=== PATIENT | male | born 1975 | race Caucasian/White ===

== ENCOUNTER 2016-10-24 17:09 | Emergency (ER) | payer SELFPAY ==
--- NOTE | 2016-10-24 18:36 | ED CLINICAL REPORT ---
Clinical Report - Physicians/Mid Levels [facility] [address] [place] [address] 10/24/2016 17:15 Patient: EMMANUEL SINCLAIR Time Seen: 17:30; initial patient contact. Arrived- By private vehicle. Historian- patient. HISTORY OF PRESENT ILLNESS Chief Complaint: FOREIGN BODY SENSATION IN THROAT. This started yesterday and is still present. It was abrupt in onset and has been constant. There has been no pain. No sore throat. Similar symptoms previously: Several times. ( Normally passes. Has tried a carbonated beverage w/out success.). Recent medical care: Not recently seen/assessed. REVIEW OF SYSTEMS No cough, difficulty breathing, chest pain or nausea. He has had vomiting. All systems otherwise negative, except as recorded above. PAST HISTORY Negative. Problems: no known problems. Surgeries: No history of previous surgery. Additional Surgeries: no known surgeries. SOCIAL HISTORY Never smoker. Occasional alcohol use. No drug use. ADDITIONAL NOTES The nursing notes have been reviewed. PHYSICAL EXAM Vital Signs: 10/24/2016 17:23 BP: 135/88. HR: 84. RR: 16. O2 saturation: 98%. Temp: 97.9 F. Pain level now: 5/10. Have been reviewed as normal. Appearance: Alert. No acute distress. Head: Normal external inspection. ENT: Pharynx normal. Lips normal. Gums normal. No trismus present. Uvula midline. No muffled or hoarse voice or drooling. The mucous membranes are not dry. Neck: Normal inspection. Trachea midline. No adenopathy. Thyroid normal. Neck supple. CVS: Normal heart rate and rhythm. Heart sounds normal. Respiratory: No respiratory distress. Breath sounds normal. Abdomen: Soft and nontender. Skin: Normal skin color. No rash. Neuro: Oriented X 3. LABS, X-RAYS, AND EKG Chest X-ray: No acute disease. Normal lung markings present. Normal heart size. Soft tissues normal. No infiltrate. (No FB). Views: AP. Technique: good. The X-rays were independently viewed by me and interpreted contemporaneously by me. Prior films were not available for comparison. Laboratory Tests: CBC w Diff: (NYDIA: 10/24/2016 18:00) ( MsgRcvd 10/24/2016 18:15) Final results Test Result Flag Units (Reference) WHITE BLOOD COUNT 8.5 K/uL (4.5-11.5) RED BLOOD COUNT 5.07 M/uL (4.50-5.90) HEMOGLOBIN 16.7 gm/dL (13.5-17.5) HEMATOCRIT 47.4 % (41.0-53.0) MEAN CELL VOLUME 94 fL (80-100) MEAN CORPUSCULAR HGB 33 pg (26-34) MEAN CORPUSCULAR HGB CONC 35 g/dL (31-37) RED CELL DISTRIBUTION WIDTH 12.8 % (11.6-14.8) PLATELET COUNT 261 K/uL (150-400) NEUTROPHIL % 80.6 H % (50-75) LYMPH % 12.4 L % (25-40) MONO % 5.8 % (3-14) EOSINOPHIL % 0.9 % (0-4) BASOPHIL % 0.3 % (0-2) . PROGRESS AND PROCEDURES Course of Care: FB cleared w/ Glucagon 1 mg. Pt able to swallow water. Disposition: Discharged home in good and improved condition. Condition: good. CLINICAL IMPRESSION Impacted esophageal foreign body: food (Cleared with Glucagon). INSTRUCTIONS Prescription Medications: Pantoprazole 40 mg tablets: take 1 tablet orally every day. Dispense twenty-eight (28). One refill. Follow-up: Screening today revealed the patient's blood pressure to be in the hypertensive range. The patient should follow up with a primary care provider for blood pressure management. Follow-up with: Karel Saul MD, General Surgeon, , [facility], [address] [place] [address] Follow up in one week. Call for an appointment. (Electronically signed by Ayad Madden Dr. 10/25/2016 20:47)
--- NOTE | 2016-10-24 18:36 | ED ORDER SUMMARY ---
..... Patient: EMMANUEL SINCLAIR OrderSheet [facility] VisitID: [id number] [place] [address] 41y, M Registration Date/Time: 10/24/2016 ORDER SHEET Weight: 95.2 kg (stated) Allergies: Unable to Obtain GENERAL ORDERS: CBC w Diff Urgent (17:36 10/24/2016 Stephani Ibrahim) (Ack 17:38 AMcQuoid ER Tech1) (18:01 KKnebel R.N.) CMP Urgent (17:36 10/24/2016 Stephani Ibrahim) (Ack 17:38 AMcQuoid ER Tech1) (18:01 KKnebel R.N.) Chest 1V (FB in esophagus) Urgent (17:40 10/24/2016 Stephani Ibrahim) (Ack 17:42 AMcQuoid ER Tech1) (18:01 KKnebel R.N.) MEDICATION ORDERS: Glucagon IV 1 mg (NOW) (17:36 10/24/2016 Stephani Ibrahim) (18:01 KKnebel R.N.) IV FLUIDS: IV NS : initial bolus none -, then 1000 mL/hr for X1 (NOW) (17:36 10/24/2016 Stephani Ibrahim) (18:01 PARKnejeff R.N.) Zofran IV 4 mg (NOW) (18:04 10/24/2016 PARKnebel R.N. verbal order read back to Stephani Ibrahim) (18:05 KKnebel R.N.) ORDER SHEET NOTES: [Electronically signed by Genny Ashford (18:49 10/24/2016)] [Electronically signed by Ayad Madden Dr. (20:47 10/25/2016)] [Electronically locked/signed by Genny Ashford (18:49 10/24/2016)]
--- NOTE | 2016-10-24 18:36 | ED ORDER SUMMARY ---
..... Patient: EMMANUEL SINCLAIR OrderSheet [facility] VisitID: [id number] [place] [address] 41y, M Registration Date/Time: 10/24/2016 ORDER SHEET Weight: 95.2 kg (stated) Allergies: Unable to Obtain GENERAL ORDERS: CBC w Diff Urgent (17:36 10/24/2016 Stephani Ibrahim) (Ack 17:38 AMcQuoid ER Tech1) (18:01 KKnebel R.N.) CMP Urgent (17:36 10/24/2016 Stephani Ibrahim) (Ack 17:38 AMcQuoid ER Tech1) (18:01 KKnebel R.N.) Chest 1V (FB in esophagus) Urgent (17:40 10/24/2016 Stephani Ibrahim) (Ack 17:42 AMcQuoid ER Tech1) (18:01 KKnebel R.N.) MEDICATION ORDERS: Glucagon IV 1 mg (NOW) (17:36 10/24/2016 Stephani Ibrahim) (18:01 KKnebel R.N.) IV FLUIDS: IV NS : initial bolus none -, then 1000 mL/hr for X1 (NOW) (17:36 10/24/2016 Stephani Ibrahim) (18:01 PARKnejeff R.N.) Zofran IV 4 mg (NOW) (18:04 10/24/2016 PARKnebel R.N. verbal order read back to Stephani Ibrahim) (18:05 KKnebel R.N.) ORDER SHEET NOTES: [Electronically signed by Genny Ashford (18:49 10/24/2016)] [Electronically signed by Ayad Madden Dr. (20:47 10/25/2016)] [Electronically locked/signed by Genny Ashofrd (18:49 10/24/2016)]
--- NOTE | 2016-10-24 18:36 | ED NURSING NOTES ---
Clinical Report - Nurses [facility] [address] [place] [address] 10/24/2016 17:15 Patient: EMMANUEL SINCLAIR TRIAGE Triage time 17:Oct 24 2016. Acuity: LEVEL 3. Chief Complaint: FOOD BOLUS. Alert. No acute distress. LUIZA COMA SCORE: Paradise Coma Scale: 15- eyes open spontaneously (4); best verbal response- oriented x 4 (5); best motor response- obeys commands (6). --17:28 Sandy Pelayo R.N. 17:23 10/24/16. BP: 135/88. HR: 84. RR: 16. O2 saturation: 98%. Temp: 97.9 F. Pain level now: 510. --17:28 Sandy Pelayo R.N. Weight: 95.2 kg stated. Height/Length: 76 inches Per Patient. BMI: 25.6. --17:27 Sandy Pelayo R.N. Medications Unable to Obtain (patient discharged). --18:49 Genny Ashford. Allergies Unable to Obtain. (patient discharged.) --18:49 Genny Ashford. History Arrived by private vehicle. Historian: patient. Accompanied by family. ( unable to keep saliva, liquid or food down). PAST MEDICAL HX: Immunizations: up-to-date. SOCIAL HX: Never smoker. Occasional alcohol use. No drug use. No infectious disease exposure. SELF HARM ASSESSMENT: A self harm assessment was performed. The patient answered "no" to the question "Do you have thoughts of harming or killing yourself?" and "Have you recently had thoughts about harming or killing others?". FALL RISK ASSESSMENT: Fall risk assessment completed. No fall risk identified. NUTRITIONAL RISK ASSESSMENT: The nutritional risk assessment revealed no deficiencies. FUNCTIONAL ASSESSMENT: Functional assessment: no impairments noted. LEARNING NEEDS ASSESSMENT: The learning needs assessment revealed no barriers. ABUSE ASSESSMENT: Abuse assessment: The patient was asked "Do you feel safe in your home?". SKIN INTEGRITY ASSESSMENT: Skin integrity risk assessment completed. No skin integrity risk identified. --17: Sandy Pelayo R.N. PROBLEMS: no known problems. ADDITIONAL SURGERIES: no known surgeries. Interventions ID band on patient. To room. --17: Sandy Pelayo R.N. PHYSICAL ASSESSMENT GENERAL / NEURO / PSYCH: Alert. Oriented X 4. Appears in no acute distress. HEENT: Pupils equal, round and reactive to light. RESPIRATORY: Respirations not labored. CVS: Capillary refill less than 2 seconds. Pulses within normal limits. GI / : Abdomen soft and nontender. SKIN: Skin is warm and dry. --17: Sandy Pelayo R.N. NURSING PROGRESS NOTES Pulse oximeter and NIBP monitor placed on patient; monitor alarms on. Patient gowned. Head of bed elevated. Patient identifiers checked. Call light placed in reach. Bed placed in lowest position. Brakes of bed on. --17: Sandy Pelayo R.N. 17:56 10/24/2016 Glucagon IVP 1 mg given over 2 minute(s) via site #1. Allergies verified and confirmed 5 rights. IV patency established. IV site checked: no pain, redness, or swelling. IV flushed thoroughly pre- and post-medication administration. IVP given by RN. --18: Sandy Pelayo R.N. 17:56 10/24/2016 Started bag #1 1000 mL IV Fluids IV NS (Saline); bolus of 1000 mL over 1 hour(s) via site #1 via IV pump. Allergies verified and confirmed 5 rights. IV patency established. IV site checked: no pain, redness, or swelling. IV flushed thoroughly pre- and post-medication administration. --18: Sandy Pelayo R.N. 18:10/24/2016 Site #1 started via IV in the left antecubital space with an 20g angiocath, with aseptic technique and good blood return; one attempt. Blood drawn: rainbow set. Labeled in the presence of the patient and sent to the lab. Saline lock flushed with 10 mL saline. --18: Sandy Pelayo R.N. 18:05 10/24/2016 Zofran (Ondansetron HCl) IVP 4 mg given over 2 minute(s) via site #1. Allergies verified and confirmed 5 rights. IV patency established. IV site checked: no pain, redness, or swelling. IV flushed thoroughly pre- and post-medication administration. IVP given by RN. --18:05 Sandy Pelayo R.N. ( pt states that he felt bolus of food go down.). --18:27 Sandy Pelayo R.N. 18:26 10/24/16. BP: 143/81. HR: 77. RR: 16. O2 saturation: 98%. Pain level now: 0/10. --18:27 Sandy Pelayo R.N. ( water given to patient). --18:27 Sandy Pelayo R.N. DISPOSITION / DISCHARGE 18:48 10/24/16. Departure time: 18:48 Oct 24 2016. Condition at departure: improved. The goals identified in the patient's plan of care were met. No learning barriers present. Discharge instructions provided and reviewed with the patient. Reviewed warnings (Patient verbalized awareness of warning s/sx listed in dc paperwork.). Reviewed medication(s). Prescription(s) given to the patient (pantoprazole). Treatments reviewed. Reviewed referral to a primary care physician for followup. Patient verbalized understanding. Written instructions provided in Lithuanian. The patient was discharged by the physician. He was discharged home and accompanied by family. He left the Emergency Department ambulatory and via private vehicle. Family member driving. FALL RISK ASSESSMENT: Fall risk assessment completed. No fall risk identified. --18:48 Genny Ashford 18:46 10/24/16. BP: 136/90. HR: 82. RR: 16. O2 saturation: 100% on room air. Temp: 97.5 F (oral). Pain level now: 0/10. --18:48 Genny Ashford. Locked/Released at 10/24/2016 18:49 by Genny Ashford,
--- NOTE | 2016-10-24 18:36 | ED CLINICAL REPORT ---
Clinical Report - Physicians/Mid Levels [facility] [address] [place] [address] 10/24/2016 17:15 Patient: EMMANUEL SINCLAIR Time Seen: 17:30; initial patient contact. Arrived- By private vehicle. Historian- patient. HISTORY OF PRESENT ILLNESS Chief Complaint: FOREIGN BODY SENSATION IN THROAT. This started yesterday and is still present. It was abrupt in onset and has been constant. There has been no pain. No sore throat. Similar symptoms previously: Several times. ( Normally passes. Has tried a carbonated beverage w/out success.). Recent medical care: Not recently seen/assessed. REVIEW OF SYSTEMS No cough, difficulty breathing, chest pain or nausea. He has had vomiting. All systems otherwise negative, except as recorded above. PAST HISTORY Negative. Problems: no known problems. Surgeries: No history of previous surgery. Additional Surgeries: no known surgeries. SOCIAL HISTORY Never smoker. Occasional alcohol use. No drug use. ADDITIONAL NOTES The nursing notes have been reviewed. PHYSICAL EXAM Vital Signs: 10/24/2016 17:23 BP: 135/88. HR: 84. RR: 16. O2 saturation: 98%. Temp: 97.9 F. Pain level now: 5/10. Have been reviewed as normal. Appearance: Alert. No acute distress. Head: Normal external inspection. ENT: Pharynx normal. Lips normal. Gums normal. No trismus present. Uvula midline. No muffled or hoarse voice or drooling. The mucous membranes are not dry. Neck: Normal inspection. Trachea midline. No adenopathy. Thyroid normal. Neck supple. CVS: Normal heart rate and rhythm. Heart sounds normal. Respiratory: No respiratory distress. Breath sounds normal. Abdomen: Soft and nontender. Skin: Normal skin color. No rash. Neuro: Oriented X 3. LABS, X-RAYS, AND EKG Chest X-ray: No acute disease. Normal lung markings present. Normal heart size. Soft tissues normal. No infiltrate. (No FB). Views: AP. Technique: good. The X-rays were independently viewed by me and interpreted contemporaneously by me. Prior films were not available for comparison. Laboratory Tests: CBC w Diff: (NYDIA: 10/24/2016 18:00) ( MsgRcvd 10/24/2016 18:15) Final results Test Result Flag Units (Reference) WHITE BLOOD COUNT 8.5 K/uL (4.5-11.5) RED BLOOD COUNT 5.07 M/uL (4.50-5.90) HEMOGLOBIN 16.7 gm/dL (13.5-17.5) HEMATOCRIT 47.4 % (41.0-53.0) MEAN CELL VOLUME 94 fL (80-100) MEAN CORPUSCULAR HGB 33 pg (26-34) MEAN CORPUSCULAR HGB CONC 35 g/dL (31-37) RED CELL DISTRIBUTION WIDTH 12.8 % (11.6-14.8) PLATELET COUNT 261 K/uL (150-400) NEUTROPHIL % 80.6 H % (50-75) LYMPH % 12.4 L % (25-40) MONO % 5.8 % (3-14) EOSINOPHIL % 0.9 % (0-4) BASOPHIL % 0.3 % (0-2) . PROGRESS AND PROCEDURES Course of Care: FB cleared w/ Glucagon 1 mg. Pt able to swallow water. Disposition: Discharged home in good and improved condition. Condition: good. CLINICAL IMPRESSION Impacted esophageal foreign body: food (Cleared with Glucagon). INSTRUCTIONS Prescription Medications: Pantoprazole 40 mg tablets: take 1 tablet orally every day. Dispense twenty-eight (28). One refill. Follow-up: Screening today revealed the patient's blood pressure to be in the hypertensive range. The patient should follow up with a primary care provider for blood pressure management. Follow-up with: Karel Saul MD, General Surgeon, , [facility], [address] [place] [address] Follow up in one week. Call for an appointment. (Electronically signed by Ayad Madden Dr. 10/25/2016 20:47)
--- NOTE | 2016-10-24 19:36 | DIAGNOSTIC IMAGING REPORT ---
PROCEDURE: XR CHEST 1 VIEW INDICATION: SHORTNESS OF BREATH TECHNIQUE: Single view. COMPARISON: 1057 hours FINDINGS: The cardiomediastinal contour is normal. No central venous congestion. The pulmonary arteries are prominent. The lungs hyperinflated but clear without focal consolidation, pleural effusion or pneumothorax. The osseous structures are intact. IMPRESSION: 1. No acute disease. 2. Findings of mild COPD/emphysema.
--- NOTE | 2016-10-25 20:47 | ED MAR SUMMARY ---
..... Medication Administration Record [facility] [address] [place] [address] Patient: EMMANUEL SINCLAIR Visit ID: [id number] 41y, M Weight: 95.2 kg Height/Length: 76 in BMI: 25.6 ALLERGIES: Unable to Obtain Start 17:56 10/24/2016 Sandy Pelayo R.N. Medication Administered: IV NS (SALINE), Dose: IV Fluids, Bolus: 1000 mL over 1 hour(s), Dispensed: 1000 mL bag, Site: #1. Medication Ordered: IV NS : initial bolus none -, then 1000 mL/hr for X1 (NOW). Given 17:56 10/24/2016 Sandy Pelayo R.N. Medication Administered: GLUCAGON [IVP], Dose: 1 mg IVP over 2 minute(s), Site: #1. Medication Ordered: Glucagon IV 1 mg (NOW). Given 18:05 10/24/2016 Sandy Pelayo R.N. Medication Administered: ZOFRAN [IVP] (ONDANSETRON HCL), Dose: 4 mg IVP over 2 minute(s), Site: #1 left AC. Medication Ordered: Zofran IV 4 mg (NOW).
--- NOTE | 2016-10-25 20:47 | ED DISCHARGE INSTRUCTIONS ---
Patient: EMMANUEL SINCLAIR General Instructions [facility] VisitID: [id number] [address] [place] [id number] 41y, M Registration Date/Time: 10/24/2016 Impacted esophageal foreign body: food (Cleared with Glucagon). INSTRUCTIONS Prescription Medications: Pantoprazole 40 mg tablets: take 1 tablet orally every day. Dispense twenty-eight (28). One refill. Follow-up: Screening today revealed the patient's blood pressure to be in the hypertensive range. The patient should follow up with a primary care provider for blood pressure management. Follow-up with: Karel Saul MD, General Surgeon, , [facility], [address] [place] [address] Follow up in one week. Call for an appointment. ADDITIONAL INFORMATION Esophageal Blockage, Resolved The esophagus is the passage that carries food from the mouth to the stomach. You had a blockage in the esophagus. This can happen after swallowing a large piece of food, taking a large pill or swallowing foreign objects. If this is a recurring problem, it can be a sign of disease in the esophagus such as inflammation or scarring. If you did not require a special procedure (endoscopy) today to treat your condition, further testing will be needed to evaluate this problem. The blockage has cleared. You should be able to swallow normally again. Home Care: For the next 24 hours you may drink liquids and eat soft foods. If you were given IV medicine today for an endoscopy procedure, you may be drowsy for the next 4-[address] or operate dangerous equipment until you feel alert again. If your blockage was from food, be sure to cut solid food into small pieces before putting it into your mouth. Chew all foods well before swallowing. If your blockage was from an meir-lun-bqjnupg pill (such as a vitamin), avoid this size pill in the future. If it was from a prescription medicine, ask your doctor for another type of medicine to replace this. Follow Up with your doctor as advised. If you have further problems, contact your doctor or this facility for advice. If this is a recurring problem, contact your doctor to schedule an endoscopy (to look inside the esophagus with a small camera on the end of a tube). Get Prompt Medical Attention if any of the following occur: Chest pain or shortness of breath Unable to swallow Vomiting blood (red or black) Blood in your stool (dark red or black color) Fever of 100.4F (38C) or higher, or as directed by your healthcare provider Pantoprazole Sodium Gastro-resistant tablet What is this medicine? PANTOPRAZOLE (rosales TOE pra zole) prevents the production of acid in the stomach. It is used to treat gastroesophageal reflux disease (GERD), inflammation of the esophagus, and Meenu-Ochoa syndrome. How should I use this medicine? Take this medicine by mouth. Swallow the tablets whole with a drink of water. Follow the directions on the prescription label. Do not crush, break, or chew. Take your medicine at regular intervals. Do not take your medicine more often than directed. Talk to your welt beater regarding the use of this medicine in children. While this drug may be prescribed for children as young as 5 years for selected conditions, precautions do apply. What side effects may I notice from receiving this medicine? Side effects that you should report to your doctor or health laboratory animal caretaker as soon as possible: allergic reactions like skin rash, itching or hives, swelling of the face, lips, or tongue bone, muscle or joint pain breathing problems chest pain or chest tightness dark yellow or brown urine dizziness fast, irregular heartbeat feeling faint or lightheaded fever or sore throat muscle spasm palpitations redness, blistering, peeling or loosening of the skin, including inside the mouth seizures tremors unusual bleeding or bruising unusually weak or tired yellowing of the eyes or skin Side effects that usually do not require medical attention (Report these to your doctor or health laboratory animal caretaker if they continue or are bothersome.): constipation diarrhea dry mouth headache nausea What may interact with this medicine? Do not take this medicine with any of the following medications: atazanavir nelfinavir This medicine may also interact with the following medications: ampicillin delavirdine digoxin diuretics iron salts medicines for fungal infections like ketoconazole, itraconazole and voriconazole warfarin What if I miss a dose? If you miss a dose, take it as soon as you can. If it is almost time for your next dose, take only that dose. Do not take double or extra doses. Where should I keep my medicine? Keep out of the reach of children. Store at room temperature between 15 and 30 degrees C (59 and 86 degrees F). Protect from light and moisture. Throw away any unused medicine after the expiration date. What should I tell my health care provider before I take this medicine? They need to know if you have any of these conditions: liver disease low levels of magnesium in the blood an unusual or allergic reaction to omeprazole, lansoprazole, pantoprazole, rabeprazole, other medicines, foods, dyes, or preservatives or trying to get breast-feeding What should I watch for while using this medicine? It can take several days before your stomach pain gets better. Check with your doctor or health laboratory animal caretaker if your condition does not start to get better, or if it gets worse. You may need blood work done while you are taking this medicine. You have been given the following additional information: Esophageal Foreign Body, Resolved Pantoprazole Sodium Gastro-resistant tablet (Electronically signed by Ayad Madden Dr. 10/25/2016 20:47)
--- NOTE | 2016-10-25 20:47 | ED MED RECONCILIATION SUMMARY ---
Patient: EMMANUEL SINCLAIR Medication Reconciliation Report [facility] VisitID: [id number] [address] [place] [address] 41y, M Registration Date/Time: 10/24/2016 Weight: 95.2 kg Height/Length: 76 in. BMI: 25.6 ALLERGIES: Unable to Obtain The patient's Home Medications are listed below: Unable to obtain. The source(s) of the original Home Medication information: Not obtained. The following Medications were given to the patient in the Emergency Department: Glucagon [IVP] IVP 1 mg, administered: 10/24/2016 5:56:00 PM IV NS IV Fluids bolus 1000 mL over 1 hour(s), administered: 10/24/2016 5:56:00 PM Zofran [IVP] IVP 4 mg, administered: 10/24/2016 6:05:00 PM The following Medications were prescribed to the patient: Pantoprazole 40 mg tablets: take 1 tablet orally every day. Dispense twenty-eight (28). One refill. -- Ayad Madden Dr.
--- NOTE | 2016-10-25 20:47 | ED MAR SUMMARY ---
..... Medication Administration Record [facility] [address] [place] [address] Patient: EMMANUEL SINCLAIR Visit ID: [id number] 41y, M Weight: 95.2 kg Height/Length: 76 in BMI: 25.6 ALLERGIES: Unable to Obtain Start 17:56 10/24/2016 Sandy Pelayo R.N. Medication Administered: IV NS (SALINE), Dose: IV Fluids, Bolus: 1000 mL over 1 hour(s), Dispensed: 1000 mL bag, Site: #1. Medication Ordered: IV NS : initial bolus none -, then 1000 mL/hr for X1 (NOW). Given 17:56 10/24/2016 Sandy Pelayo R.N. Medication Administered: GLUCAGON [IVP], Dose: 1 mg IVP over 2 minute(s), Site: #1. Medication Ordered: Glucagon IV 1 mg (NOW). Given 18:05 10/24/2016 Sandy Pelayo R.N. Medication Administered: ZOFRAN [IVP] (ONDANSETRON HCL), Dose: 4 mg IVP over 2 minute(s), Site: #1 left AC. Medication Ordered: Zofran IV 4 mg (NOW).
--- NOTE | 2016-10-25 20:47 | ED DISCHARGE INSTRUCTIONS ---
Patient: EMMANUEL SINCLAIR General Instructions [facility] VisitID: [id number] Wilfredo Brewer [place] [id number] 41y, M Registration Date/Time: 10/24/2016 Impacted esophageal foreign body: food (Cleared with Glucagon). INSTRUCTIONS Prescription Medications: Pantoprazole 40 mg tablets: take 1 tablet orally every day. Dispense twenty-eight (28). One refill. Follow-up: Screening today revealed the patient's blood pressure to be in the hypertensive range. The patient should follow up with a primary care provider for blood pressure management. Follow-up with: Karel Saul MD, General Surgeon, , [facility], [address] [place] [address] Follow up in one week. Call for an appointment. ADDITIONAL INFORMATION Esophageal Blockage, Resolved The esophagus is the passage that carries food from the mouth to the stomach. You had a blockage in the esophagus. This can happen after swallowing a large piece of food, taking a large pill or swallowing foreign objects. If this is a recurring problem, it can be a sign of disease in the esophagus such as inflammation or scarring. If you did not require a special procedure (endoscopy) today to treat your condition, further testing will be needed to evaluate this problem. The blockage has cleared. You should be able to swallow normally again. Home Care: For the next 24 hours you may drink liquids and eat soft foods. If you were given IV medicine today for an endoscopy procedure, you may be drowsy for the next 4-[address] or operate dangerous equipment until you feel alert again. If your blockage was from food, be sure to cut solid food into small pieces before putting it into your mouth. Chew all foods well before swallowing. If your blockage was from an [id number] pill (such as a vitamin), avoid this size pill in the future. If it was from a prescription medicine, ask your doctor for another type of medicine to replace this. Follow Up with your doctor as advised. If you have further problems, contact your doctor or this facility for advice. If this is a recurring problem, contact your doctor to schedule an endoscopy (to look inside the esophagus with a small camera on the end of a tube). Get Prompt Medical Attention if any of the following occur: Chest pain or shortness of breath Unable to swallow Vomiting blood (red or black) Blood in your stool (dark red or black color) Fever of 100.4F (38C) or higher, or as directed by your healthcare provider Pantoprazole Sodium Gastro-resistant tablet What is this medicine? PANTOPRAZOLE (rosales TOE pra zole) prevents the production of acid in the stomach. It is used to treat gastroesophageal reflux disease (GERD), inflammation of the esophagus, and Meenu-Ochoa syndrome. How should I use this medicine? Take this medicine by mouth. Swallow the tablets whole with a drink of water. Follow the directions on the prescription label. Do not crush, break, or chew. Take your medicine at regular intervals. Do not take your medicine more often than directed. Talk to your calendering supervisor regarding the use of this medicine in children. While this drug may be prescribed for children as young as 5 years for selected conditions, precautions do apply. What side effects may I notice from receiving this medicine? Side effects that you should report to your doctor or health care trainer as soon as possible: allergic reactions like skin rash, itching or hives, swelling of the face, lips, or tongue bone, muscle or joint pain breathing problems chest pain or chest tightness dark yellow or brown urine dizziness fast, irregular heartbeat feeling faint or lightheaded fever or sore throat muscle spasm palpitations redness, blistering, peeling or loosening of the skin, including inside the mouth seizures tremors unusual bleeding or bruising unusually weak or tired yellowing of the eyes or skin Side effects that usually do not require medical attention (Report these to your doctor or health care trainer if they continue or are bothersome.): constipation diarrhea dry mouth headache nausea What may interact with this medicine? Do not take this medicine with any of the following medications: atazanavir nelfinavir This medicine may also interact with the following medications: ampicillin delavirdine digoxin diuretics iron salts medicines for fungal infections like ketoconazole, itraconazole and voriconazole warfarin What if I miss a dose? If you miss a dose, take it as soon as you can. If it is almost time for your next dose, take only that dose. Do not take double or extra doses. Where should I keep my medicine? Keep out of the reach of children. Store at room temperature between 15 and 30 degrees C (59 and 86 degrees F). Protect from light and moisture. Throw away any unused medicine after the expiration date. What should I tell my health care provider before I take this medicine? They need to know if you have any of these conditions: liver disease low levels of magnesium in the blood an unusual or allergic reaction to omeprazole, lansoprazole, pantoprazole, rabeprazole, other medicines, foods, dyes, or preservatives or trying to get breast-feeding What should I watch for while using this medicine? It can take several days before your stomach pain gets better. Check with your doctor or health care trainer if your condition does not start to get better, or if it gets worse. You may need blood work done while you are taking this medicine. You have been given the following additional information: Esophageal Foreign Body, Resolved Pantoprazole Sodium Gastro-resistant tablet (Electronically signed by Ayad Madden Dr. 10/25/2016 20:47)
--- NOTE | 2016-10-25 20:47 | ED MED RECONCILIATION SUMMARY ---
Patient: EMMANUEL SINCLAIR Medication Reconciliation Report [facility] VisitID: [id number] [place] [address] 41y, M Registration Date/Time: 10/24/2016 Weight: 95.2 kg Height/Length: 76 in. BMI: 25.6 ALLERGIES: Unable to Obtain The patient's Home Medications are listed below: Unable to obtain. The source(s) of the original Home Medication information: Not obtained. The following Medications were given to the patient in the Emergency Department: Glucagon [IVP] IVP 1 mg, administered: 10/24/2016 5:56:00 PM IV NS IV Fluids bolus 1000 mL over 1 hour(s), administered: 10/24/2016 5:56:00 PM Zofran [IVP] IVP 4 mg, administered: 10/24/2016 6:05:00 PM The following Medications were prescribed to the patient: Pantoprazole 40 mg tablets: take 1 tablet orally every day. Dispense twenty-eight (28). One refill. -- Ayad Madden Dr.
== END 2016-10-24 18:48 | disposition home or self-care (01) ==
LOC: ED SRH 17:09
DX: T18.108A Unspecified foreign body in esophagus causing other injury, initial encounter (principal); X58.XXXA Exposure to other specified factors, initial encounter; Y93.9 Activity, unspecified; Y92.9 Unspecified place or not applicable; Y99.9 Unspecified external cause status
CPT/HCPCS: 90100; 95059